=== PATIENT | female | born 1930 | race Caucasian/White ===

== ENCOUNTER 2018-02-13 05:31 | Day surgery (SDC) | payer OTHER, BC ==
[~2018-02-13] VITALS: Ht 165.1 cm; Wt 60.8 kg
--- NOTE | ~2018-02-13 | O ---
[facility] [place] [address] OPERATIVE REPORT Name: PINA SAHNI Room #: 150-3 [facility]..#: [id number] Admission: 02/13/18 Attend Phys: Jean Matta MD Discharge: Date of : [birth year] Report #: [id number] THIS REPORT FOR: //name// CC: Dr. Indra Crawley FAM unknown Lizet Poole DATE OF SERVICE: 02/13/2018 [employer] [employer] ARCHITECT: None. PREOPERATIVE DIAGNOSIS: Unilateral right-sided lower lid entropion. POSTOPERATIVE DIAGNOSIS: Unilateral right-sided lower lid entropion. OPERATION PERFORMED: Unilateral right-sided lower lid entropion repair. ANESTHESIA: Local with IV sedation. COMPLICATIONS: None. INDICATIONS FOR PROCEDURE: This patient has unilateral lower lid entropion with chronic irritation and discharge. The current procedure is being undertaken in order to improve the patient's level of comfort and visual function. Informed consent was obtained to include but not limited to the loss of vision, bleeding, infection, scarring, failure to improve the problem and need for further surgery. DESCRIPTION OF OPERATION: The patient was taken to the operating room, where 2% Xylocaine with epinephrine mixed with equal parts of 0.75% Marcaine with Wydase was administered transcutaneously and transconjunctivally to the lower lid and lateral canthal area. The patient was then prepped and draped in the usual sterile fashion. A [place] clamp was used to clamp the lateral canthus, following which a sharp canthotomy and cantholysis were performed. Hemostasis was achieved with a monopolar cautery, as it was throughout the case. A tarsal strip was prepared laterally, removing the lash-bearing portion of the redundant lid margin and the redundant tarsal plate. A transconjunctival dissection was then undertaken just inferior to the lower border of the tarsal plate. The lower lid retractors were disinserted from the inferior border of the tarsal plate. The lower lid retractors were then advanced and reattached to the anterior surface of the tarsal plate with mattress 5-0 chromic sutures passed transconjunctivally and secured in the infraciliary margin. The tarsal strip was then secured laterally with 2 interrupted 5-0 Prolene sutures. The subcutaneous structures and the skin were then closed with multiple interrupted [address] [address] OPERATIVE REPORT Name: PINA SAHNI JO Room #: 150-[address] [place] [address]#: [id number] Admission: 02/13/18 Attend Phys: Jean Matta MD Discharge: Date of : [birth year] Report #: [id number] 6-0 plain gut sutures so the lateral canthal angle was sharply reformed. The wound was then cleaned and dressed with ophthalmic antibiotic ointment. The patient was then transported to the recovery area having tolerated the procedure well with no anesthetic or operative complications being noted. By: [id number] MD ary Dillon
[~2018-02-13 05:31] MED LIST: AMLODIPINE BESY10 MG PO; BISACODYL SUPP10 MG RECTAL; CALCIUM 500 +1 EAC5 PO; CLARITIN10 MG PO; IPRAT-ALBUT 0.5-3 ML INH; LASIX 40 MG TAB40 M2 PO; LEXAPRO20 MG PO; LISINOPRIL40 MG PO; MELATIN3 MG PO; MILK OF MA2400 MG/10 PO; MULTIVITAMINS1 EAC7 PO; NAMENDA XR28 MG PO; OMEPRAZOLE 20 M20 M1 PO; PRESERVISION A1 EAC2 PO; TYLENOL EXTRA500 MG PO
[2018-02-13 08:31] VITALS: BP 154/53
--- NOTE | 2018-02-13 08:46 | EKG ---
[place] [address] [facility] [place] [address] ELECTROCARDIOGRAM REPORT Name: PINA SAHNI Room #: 150-3 [facility].#: [id number] Admission: 02/13/18 Attend Phys: Jean Matta MD Discharge: Date of : [birth year] Report #: [id number] THIS REPORT FOR: //name// [facility] Test Date: 2018-02-13 Test Time: 08:23:38 Pat Name: PINA SAHNI Department: Room: 150 3 Gender: F Test Man: wilfrid : 1930 Requested By: Rajendra Grady Order Number: [id number] MD: Gary Carrera Measurements Intervals [place] Rate: 79 P: 73 PA: 178 QRS: -12 QRSD: 87 T: 6 QT: 392 QTc: 450 Interpretive Statements Sinus rhythm Atrial premature complex Anteroseptal infarct, old Baseline wander in lead(s) V1 No previous ECG available for comparison Electronically Signed On 02-13-2018 8:46:28 [employer] by Gary Carrera [email or web address] <ELECTRONICALLY SIGNED> By: Gary Carrera MD, [facility] 02/13/18 0846 2 2 Gary Carrera MD, [facility] /EPI
== END 2018-02-13 10:49 | disposition home or self-care (01) ==
LOC: OR 05:31 → TBA 05:31 → OR 10:49
DX: H02.002 Unspecified entropion of right lower eyelid (principal); I13.0 Hypertensive heart and chronic kidney disease with heart failure and stage 1 through stage 4 chronic kidney disease, or unspecified chronic kidney disease; I50.9 Heart failure, unspecified; N18.3 Chronic kidney disease, stage 3 (moderate); I25.2 Old myocardial infarction; D64.9 Anemia, unspecified; K21.9 Gastro-esophageal reflux disease without esophagitis; F32.9 Major depressive disorder, single episode, unspecified; F41.9 Anxiety disorder, unspecified; F03.90 Unspecified dementia, unspecified severity, without behavioral disturbance, psychotic disturbance, mood disturbance, and anxiety; Z90.710 Acquired absence of both cervix and uterus; Z98.890 Other specified postprocedural states; Z87.19 Personal history of other diseases of the digestive system; Z87.09 Personal history of other diseases of the respiratory system; Z79.899 Other long term (current) drug therapy
CPT/HCPCS: 50010; 50101; 50386; 50398; 51636; 56527; 56531; 62110; 62850; 70005